=== PATIENT | male | born 1985 | race African-American/Black ===

== ENCOUNTER 2017-04-09 02:24 | Emergency (ER) | payer MEDICAID ==
[~2017-04-09] VITALS: Ht 175.3 cm; Wt 99.8 kg
[2017-04-09] VITALS (8 sets, daily range): BP systolic 100–138; BP diastolic 49–89
[~2017-04-09 02:24] MED LIST: NKM
[2017-04-09] MEDS ORDERED: UNOBMED (02:38)
[2017-04-09 03:19] LABS: BASOPHILS % (AUTO) 0.8 % (0.0-2.0); EOSINOPHILS % (AUTO) 1.1 % (0.0-3.0); LYMPHOCYTES % (AUTO) 33.3 % (20.0-45.0); MEAN CORPUSCULAR HEMOGLOBIN 35.7 PG (27.0-31.0); MEAN CORPUSCULAR HGB CONC 35.5 G/DL (32.0-36.0); MEAN CORPUSCULAR VOLUME 101 FL (80-99); MEAN PLATELET VOLUME 7.9 FL (6.5-10.1); MONOCYTES % (AUTO) 6.1 % (1.0-10.0); NEUTROPHILS % (AUTO) 58.8 % (45.0-75.0); PLATELET COUNT 227 K/UL (150-450); RED BLOOD COUNT 3.85 M/UL (4.70-6.10); RED CELL DISTRIBUTION WIDTH 10.7 % (11.6-14.8); WHITE BLOOD COUNT 8.5 K/UL (4.8-10.8)
[2017-04-09 03:33] LABS: ALANINE AMINOTRANSFERASE 10 U/L (3-41); ALBUMIN/GLOBULIN RATIO 1.1 (1.0-2.7); ALCOHOL 273 mg/dL; ANION GAP 17 (5-15); ASPARTATE AMINO TRANSFERASE 20 U/L (5-40); CALCIUM 9.6 mg/dL (8.6-10.2); CARBON DIOXIDE 21 mEQ/L (20-30); CHLORIDE 108 mEQ/L (98-107); CREATININE 1.1 mg/dL (0.7-1.2); GLOMERULAR FILTRATION RATE > 60 mL/min (>60); HEMOLYSIS 12; POTASSIUM 3.3 mEQ/L (3.4-4.9); SODIUM 146 mEQ/L (135-145); TOTAL PROTEIN 8.1 g/dL (6.6-8.7)
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
--- NOTE | 2017-04-10 19:43 | Cardiology Report ---
APPROVED REPORT EKG Measurement Heart [id number] QT0T0 QTc0 No QRS complexes found, no ECG analysis possible
== END 2017-04-09 10:13 | disposition home or self-care (01) ==
LOC: EMR 02:35
DX: F10.129 Alcohol abuse with intoxication, unspecified (principal); G40.909 Epilepsy, unspecified, not intractable, without status epilepticus
CPT/HCPCS: 36415; 80053; 80300; 80329; 82962; 85025; 93005; 96360; 99284